=== PATIENT | female | born 1990 | race Caucasian/White ===

== ENCOUNTER 2017-01-16 13:12 | Emergency (ER) | payer MEDICAID ==
[~2017-01-16 13:12] MED LIST: HUMALOG SQ
[2017-01-16] MEDS ORDERED: SODIUM CHLORIDE 0.9% FLUSH 10 ML FLUSH IVF PRN (13:15)
[2017-01-16] MEDS ORDERED: RESP: ALBUTEROL 2.5 MG/IPRATROPIUM 0.5 MG NEB (SCH) INH ONE (13:15)
[2017-01-16 13:17] VITALS: BP 104/71; PULSE 93; RESP 18; TEMP 98.9; O2SAT 100
[2017-01-16 13:19] VITALS: RESP 18; O2SAT 99
--- NOTE | 2017-01-16 13:26 | PD ---
Data Data Last Documented VS Vital Signs Date Time Temp Pulse Resp B/P (MAP) Pulse Ox O2 Delivery O2 Flow Rate FiO2 01/16/17 13:19 94 20 100 Room Air 01/16/17 13:19 01/16/17 13:17 98.9 Orders Orders Heart Tones (01/16/17 13:15) Chest, Single Ap (01/16/17 ) Blood Glucose (01/16/17 13:15) Electrocardiogram (01/16/17 13:15) Ecg Monitoring (01/16/17 13:15) Iv Access Insert/Monitor (01/16/17 13:15) Oximetry (01/16/17 13:15) Oxygen Administration (01/16/17 13:15) Albuterol-Ipratropium Neb (Duoneb Neb) (01/16/17 13:15) Sodium Chloride 0.9% Flush (Ns Flush) (01/16/17 13:15) MDM Supervised Visit with [facility]: Yes Narrative Course To 26 year-old woman at about 31 weeks who presents to the emergency department claiming of cough congestion and shortness of breath ongoing for the past several days. Some productive cough. She apparently is being treated for high risk . She was at [facility] earlier for evaluation but they apparently couldn't see her in severity of her prescription to go get a nonstress test somewhere. She presented to the OB ED and they directed her down to the emergency department given her chest pain. She has no evidence of PE. She looks well. She was smoking up until about 14 weeks and she quit smoking at that time. She is a little bit of faint wheezing on exam. We'll get a chest x-ray, treated with antibiotics and bronchodilators. We'll send her OB ED for evaluation following this. Garth Dewey MD Jan 16, 2017 13:26
--- NOTE | 2017-01-16 13:34 | PD ---
HPI Chief Complaint: Chest Pain Time Seen by Provider: 13:14 Travel History International Travel<30 days: No Contact w/Intl Traveler<30days: No History of Present Illness HPI 26-year-old female presents the emergency department with increasing cough, chest congestion, and shortness of breath. Patient is 32 weeks . Patient states she was a smoker until she was 14 weeks . Patient has history of bronchitis in the past and this is how she feels now. She has increased head congestion, sinus congestion, postnasal drip, and intermittent sore throat. Patient admits to a productive cough with brownish sputum over the past few days. She denies heartburn. Patient denies abdominal pain or nausea or vomiting. Patient is a type II diabetic. Patient has not noticed specific fever. Patient has noticed decreased movement the last couple of days. Patient has no history of asthma, but has had bronchitis in the past. She is allergic to oxycodone. PFSH Past Medical History Diabetes: Yes : 3 Para: 2 Social History Alcohol Use: No Tobacco Use: Yes (recently quit 17 weeks ago) Substance Use: No Allergies-Medications (Allergen,Severity, Reaction): Coded Allergies: oxycodone (Verified Allergy, Severe, Hives, 01/12/17) Reported Meds & Prescriptions Reported Meds & Active Scripts Active Reported Humalog Inj (Insulin Human Lispro) 1,000 Unit/10 Ml Vial 40 Units SQ HS Humalog Inj (Insulin Human Lispro) 1,000 Unit/10 Ml Vial 30 Units SQ DAILY Review of Systems Except as stated in HPI: all other systems reviewed are Neg General / Constitutional: No: Fever Eyes: No: Visual changes HENT: Positive: Headaches, Sore Throat, Rhinitis, Rhinorrhea, Congestion, No: Nosebleed, Neck Stiffness, Neck Pain, Ear Discharge, Earache Cardiovascular: No: Chest Pain or Discomfort Respiratory: Positive: Cough, Shortness of Breath, No: Wheezing, Sneezing Gastrointestinal: No: Abdominal Pain Genitourinary: No: Dysuria Musculoskeletal: No: Pain Skin: No Rash Neurologic: No: Weakness Psychiatric: No: Depression Endocrine: No: Polydipsia Hematologic/Lymphatic: No: Easy Bruising Physical Exam Narrative GENERAL: Patient appears in mild distress. Patient able to speak in full sentences. SKIN: Warm and dry. Normal color. Normal turgor. HEAD: Atraumatic. Normocephalic. EYES: Pupils equal and round. No scleral icterus. No injection or drainage. ENT: No nasal bleeding or discharge. Mucous membranes pink and moist. TMs are somewhat dull bilaterally without injection. Patient has mild to moderate frontal and maxillary sinus tenderness with percussion. Posterior pharynx is mildly erythematous and swollen with cobblestoning present. There is small amount of whitish yellow postnasal drip noted. Pharynx is clear. Airway is patent. NECK: Trachea midline. Supple. CARDIOVASCULAR: Regular rate and rhythm. RESPIRATORY: No accessory muscle use. Coarse sounds to auscultation. No wheezes, rales, or rhonchi. Breath sounds equal bilaterally. GASTROINTESTINAL: Abdomen soft, non-tender, nondistended. Hepatic and splenic margins not palpable. Gravid uterus. heart tones are obtained with a heart rate of 140. MUSCULOSKELETAL: Extremities without clubbing, cyanosis, or edema. No obvious deformities. NEUROLOGICAL: Awake and alert. No obvious cranial nerve deficits. Motor grossly within normal limits. Five out of 5 muscle strength in the arms and legs. Normal speech. PSYCHIATRIC: Appropriate mood and affect; insight and judgment normal. Data Data Last Documented VS Vital Signs Date Time Temp Pulse Resp B/P (MAP) Pulse Ox O2 Delivery O2 Flow Rate FiO2 01/16/17 13:19 94 20 100 Room Air 01/16/17 13:19 01/16/17 13:17 98.9 Orders Orders Heart Tones (01/16/17 13:15) Chest, Single Ap (01/16/17 ) Blood Glucose (01/16/17 13:15) Electrocardiogram (01/16/17 13:15) Ecg Monitoring (01/16/17 13:15) Iv Access Insert/Monitor (01/16/17 13:15) Oximetry (01/16/17 13:15) Oxygen Administration (01/16/17 13:15) Albuterol-Ipratropium Neb (Duoneb Neb) (01/16/17 13:15) Sodium Chloride 0.9% Flush (Ns Flush) (01/16/17 13:15) [facility] Medical Decision Making Medical Screen Exam Complete: Yes Emergency Medical Condition: Yes Differential Diagnosis Upper respiratory infection. Bronchitis. Postnasal drip. Narrative Course Patient is medically stable at time of exam. heart tones are checked and found to be 140 bpm. Patient is discussed with Dr. Dewey. Bedside fingerstick glucose was checked, patient is given DuoNeb, and AP view of the chest is ordered. Further labs or not felt warranted at this time. Random fingerstick glucose was 116. EKG shows normal sinus rhythm without specific T-wave abnormalities. Patient felt symptomatically improved after the DuoNeb. Chest x-ray shows no acute process per radiologist. Patient will be treated with azithromycin Dosepak as directed. Patient also given albuterol metered-dose inhaler 2 puffs every 4-6 hours when necessary wheezing. Patient is sent to the OB floor for evaluation of the fetus. Diagnosis Primary Impression: Wheezy bronchitis Additional Impression: 32 weeks gestation of Referrals: [place] Patient Instructions: Acute Bronchitis (ED), General Instructions, How to Use a Metered-Dose Inhaler (ED) Additional Instructions: Chest x-ray shows no acute process per radiologist. Patient will be treated with azithromycin Dosepak as directed. Patient also given albuterol metered-dose inhaler 2 puffs every 4-6 hours when necessary wheezing. Patient is sent to the OB floor for evaluation of the fetus. Scripts Albuterol 18 GM Inh (Ventolin Hfa 18 GM Inh) 90 Mcg/Act Aer 2 PUFF INH Q4-6H Y for SHORTNESS OF BREATH, #1 INHALER 0 Refills Prov: Garth Dewey MD 01/16/17 Azithromycin (Azithromycin) 250 Mg Tab 250 MG PO DIRECTED for Infection, #6 TAB 0 Refills Take 2 tabs (500 mg) on day 1 then 1 tab daily x 4 days. Prov: Garth Dewey MD 01/16/17 Disposition: 01 DISCHARGE HOME Condition: Stable Jl Myers Jan 16, 2017 13:34
--- NOTE | 2017-01-16 13:48 | RADRPT ---
EXAM DATE/TIME: 01/16/2017 13:34 [facility] COMPARISON: No previous studies available for comparison. INDICATIONS : Pain and coughing. MEDICAL HISTORY : None. SURGICAL HISTORY : None. ENCOUNTER: Initial ACUITY: 4 - 6 days PAIN SCORE: 5/10 LOCATION: Right chest FINDINGS: A single view of the chest demonstrates the lungs to be symmetrically aerated without evidence of mas s, infiltrate or effusion. The cardiomediastinal contours are unremarkable. Osseous structures are intact. CONCLUSION: No acute disease. Isaías Arguelles MD FACR on January 16, 2017 at 13:46 Board Certified Radiologist. This report was verified electronically.
[2017-01-16] MEDS ORDERED: VENTAER INH (13:56)
[2017-01-16] MEDS ORDERED: AZIT250T3 PO (13:56)
--- NOTE | 2017-01-16 15:12 | PD ---
HPI Chief Complaint Sinus congestion shortness of breath chest pain, decreased movement Date Seen: Jan 16, 2017 Travel History International Travel<30 Days: No Contact w/Intl Traveler<30Days: No Known Affected Area: No History of Present Illness HPI Patient is 26-year-old 32 weeks with IDDM who goes to [facility] in [place] for care due to being a type I diabetic, who presents complaining of shortness of breath and chest pain sinus congestion and decreased movement. Patient was seen in the main emergency room for chest pain and that evaluation revealed acute bronchitis she is given prescriptions for antibiotics and decongestants there. Her random blood sugar was 116 and 113, she is on twice a day insulin she was sent to the main ER for OB evaluation due to decreased movement. Patient states she's felt the baby move for several times since being here on OB ED and the heart rate tracing is reactive no contractions seen Weeks Gestation: 32 Para: 2 : 3 History Past Medical History Narrative Medical Insulin-dependent diabetes Obstetric History Obstetric History 2 vaginal deliveries Social History Narrative Social History She stop smoking which was 14 weeks Alcohol Use: No Tobacco Use: No Substance Abuse: No Allergies-Medications (Allergen,Severity, Reaction): Coded Allergies: oxycodone (Verified Allergy, Severe, Hives, 01/12/17) Home Meds Active Scripts Albuterol 18 GM Inh (Ventolin Hfa 18 GM Inh) 90 Mcg/Act Aer, 2 PUFF INH Q4-6H Y for SHORTNESS OF BREATH, #1 INHALER 0 Refills Prov:Garth Dewey MD 01/16/17 Azithromycin (Azithromycin) 250 Mg Tab, 250 MG PO DIRECTED for Infection, #6 TAB 0 Refills Take 2 tabs (500 mg) on day 1 then 1 tab daily x 4 days. Prov:Garth Dewey MD 01/16/17 Reported Medications Insulin Lispro (Human) Inj (Humalog Inj) 1,000 Unit/10 Ml Vial, 40 UNITS SQ HS for Blood Sugar Management, #1 VIAL 0 Refills 01/12/17 Insulin Lispro (Human) Inj (Humalog Inj) 1,000 Unit/10 Ml Vial, 30 UNITS SQ DAILY for Blood Sugar Management, #1 VIAL 0 Refills 01/12/17 Review of Systems General / Constitutional: No: Fever, Weight Gain, Chills, Other Eyes: No: Diploplia, Blurred Vision, Visual changes, Pain, Photophobia HENT: No: Headaches, Vertigo, Lightheadedness Cardiovascular: No: Irregular Rhythm, Chest Pain or Discomfort, Palpitations, Tachycardia, Syncope, Varicosities, Edema, Cyanosis Respiratory: Cough, Short of Breath, No: Other Gastrointestinal: No: Nausea, Vomiting, Diarrhea Genitourinary: No: Decreased Urinary Output, Oliguria Musculoskeletal: No: Limited ROM, Weakness, Cramping, Edema, Pain Skin: No Rash, No Itching, No Dryness, No Lumps, No Change in Pigmentation, No Change in Nails, No Alopecia, No Lesions Neurologic: No: Weakness, Dizziness, Syncope, Focal Abnormalities, Coordination Problem, Headache, Slurred Speech, Seizures Psychiatric: No: Depression, Suicidal Ideations, Homicidal Ideation Endocrine: No: Heat Intolerance, Cold Intolerance, Polydipsia, Polyuria, Other Physical Exam Vital Signs Date Time Temp Pulse Resp B/P (MAP) Pulse Ox O2 Delivery O2 Flow Rate FiO2 01/16/17 13:19 94 20 100 Room Air 01/16/17 13:19 98 Room Air 01/16/17 13:19 18 99 Room Air 01/16/17 13:17 98.9 93 18 104/71 (82) 100 Room Air Narrative GENERAL: Well-nourished, well-developed patient. SKIN: Warm and dry. HEAD: Normocephalic and atraumatic. EYES: No scleral icterus. No injection or drainage. ENT: No nasal drainage noted. Mucous membranes pink. Airway patent. NECK: Supple, trachea midline. No JVD. CARDIOVASCULAR: Regular rate and rhythm without murmurs, gallops, or rubs. RESPIRATORY: Breath sounds equal bilaterally. No accessory muscle use. BREASTS: Bilateral exam showed no masses , no retractions, no nipple discharge. ABDOMEN/GI: Abdomen soft, non-tender, bowel sounds present, no rebound, no guarding Gravid to [32-] weeks size Membranes: [intact ] Uterine Contractions: [none-] FHT's: Category: [-1] Baseline: [133-] Reactive: [-yes] Variability: mod[-] Decels: none[-] EXTREMITIES: No cyanosis or edema. BACK: Nontender without obvious deformity. No CVA tenderness. NEUROLOGICAL: Awake and alert. Motor and sensory grossly within normal limits. Five out of 5 muscle strength in all muscle groups. Normal speech. Data Data Orders Orders Heart Tones (01/16/17 13:15) Chest, Single Ap (01/16/17 ) Blood Glucose (01/16/17 13:15) Electrocardiogram (01/16/17 13:15) Ecg Monitoring (01/16/17 13:15) Iv Access Insert/Monitor (01/16/17 13:15) Oximetry (01/16/17 13:15) Oxygen Administration (01/16/17 13:15) Albuterol-Ipratropium Neb (Duoneb Neb) (01/16/17 13:15) Sodium Chloride 0.9% Flush (Ns Flush) (01/16/17 13:15) Labs Fingerstick blood sugar 113 in the ER Chest x-ray and EKG done in the ER see results there MDM Interpretation(s) Patient is 26-year-old at 32 weeks with IDDM, now with acute bronchitis versus workup in the emergency room and she has prescriptions for azithromycin decongestants. She noted decreased movement earlier but now noted the baby move well here on OB ED and the NST is reactive Plan Plan the patient to take medications as prescribed, increase liquid intake for hydration, Tylenol as needed, bedrest and over heating pad for comfort, to continue monitoring her blood sugar and diet, and to follow-up with her doctors at [facility] Diagnosis Diagnosis: Primary Impression: Wheezy bronchitis Additional Impression: 32 weeks gestation of Disposition: 01 DISCHARGE HOME Condition: Stable Scripts Albuterol 18 GM Inh (Ventolin Hfa 18 GM Inh) 90 Mcg/Act Aer 2 PUFF INH Q4-6H Y for SHORTNESS OF BREATH, #1 INHALER 0 Refills Prov: Garth Dewey MD 01/16/17 Azithromycin (Azithromycin) 250 Mg Tab 250 MG PO DIRECTED for Infection, #6 TAB 0 Refills Take 2 tabs (500 mg) on day 1 then 1 tab daily x 4 days. Prov: Garth Dewey MD 01/16/17 Referrals: [employer] [facility] Patient Instructions: General Instructions, How to Use a Metered-Dose Inhaler ( ED), Acute Bronchitis (ED) Additional Instructions: Chest x-ray shows no acute process per radiologist. Patient will be treated with azithromycin Dosepak as directed. Patient also given albuterol metered-dose inhaler 2 puffs every 4-6 hours when necessary wheezing. Patient is sent to the OB floor for evaluation of the fetus. Departure Forms: Tests/Procedures Collins Wright II, MD Jan 16, 2017 15:12
--- NOTE | 2017-01-16 17:19 | EKG ---
Date Performed: 01/16/2017 Time Performed: 13:16:50 PTAGE: 26 years EKG: Sinus rhythm NONSPECIFIC T-WAVE ABNORMALITY BORDERLINE ECG NO PREVIOUS TRACING DOCTOR: Garth Alves Interpretating Date/Time 01/16/2017 17:16:41
== END 2017-01-16 15:15 | disposition home or self-care (01) ==
LOC: NEPC 13:12 → HOBED 15:15
DX: O99.513 Diseases of the respiratory system complicating pregnancy, third trimester (principal); J20.9 Acute bronchitis, unspecified; O24.013 Pre-existing type 1 diabetes mellitus, in pregnancy, third trimester; E10.9 Type 1 diabetes mellitus without complications; Z3A.32 32 weeks gestation of pregnancy; Z79.4 Long term (current) use of insulin; Z87.891 Personal history of nicotine dependence
CPT/HCPCS: 59025; 71010; 93005; 94664